=== PATIENT | female | born 2000 | race Caucasian/White ===

== ENCOUNTER → 2019-06-30 10:47 | Outpatient (BNVA) | payer MEDICAID, SELFPAY | PROVIDERS: Visit Provider Nurse Practitioner Women's Health | DX: O99.331 Smoking (tobacco) complicating pregnancy, first trimester (principal); O26.891 Other specified pregnancy related conditions, first trimester; Z67.91 Unspecified blood type, Rh negative | CPT/HCPCS: 80307; 81003; 84315 ==

== ENCOUNTER → 2019-07-18 08:56 | Outpatient (BNVA) | payer MEDICAID, SELFPAY | PROVIDERS: Visit Provider Obstetrics & Gynecology | DX: Z34.82 Encounter for supervision of other normal pregnancy, second trimester (principal) | CPT/HCPCS: 76805 ==

== ENCOUNTER 2019-11-07 21:41 | Outpatient (CLI) | payer MEDICAID, SELFPAY ==
[2019-11-07 21:58] VITALS: BP 103/59; PULSE 94; RESP 16; TEMP 36.8
[2019-11-07 22:35] VITALS: BMI 20.9
[2019-11-07 22:36] VITALS: BP 103/59; PULSE 94; RESP 16; TEMP 36.8
--- NOTE | 2019-11-07 22:49 | PC.NURSE ---
Patient denies contraction however they are graphing on TOCO and are palpated by this nurse. Patient also reports vaginal bleeding however at this time she has no blood on her underwear, nor on the toilet paper when wiping and there was no blood on this nurse's glove after SVE.
== END 2019-11-07 22:40 | disposition home or self-care (01) ==
LOC: OPOB 21:48 → OBGYN 21:49
PROVIDERS: Visit Provider Family Medicine
DX: O36.8190 Decreased fetal movements, unspecified trimester, not applicable or unspecified (principal); Z3A.00 Weeks of gestation of pregnancy not specified
CPT/HCPCS: 59025; 99211

== ENCOUNTER 2021-02-10 19:20 | Emergency (ER) | payer MEDICAID, SELFPAY ==
[2021-02-10 19:32] VITALS: BP 134/60; PULSE 103; RESP 15; TEMP 36.7; O2SAT 99; BMI 19.1
--- NOTE | 2021-02-10 20:05 | XRR_ITS ---
PROCEDURE INFORMATION: Exam: XR Right Ankle Exam date and time: 02/10/2021 8:05 PM Age: 20 years old Clinical indication: Injury or trauma; Fall; Sprain or strain; Ankle; Right TECHNIQUE: Imaging protocol: XR Right ankle. Views: 3 or more views. COMPARISON: No relevant prior studies available. FINDINGS: Bones/joints: Normal. Soft tissues: Normal. XR/XR ankle RT min 3V* [id number] IMPRESSION: No acute findings.
--- NOTE | 2021-02-10 20:41 | W.ED.EXTPRO ---
HPI - Extremity Problem General: Chief complaint: Extremity Injury, Lower Stated complaint: R FOOT INJURY Time Seen by Provider: 02/10/21 19:37 History of Present Illness: HPI Narrative: 80-year-old female who fell last night, injuring her ankle/foot she has had problems bearing weight since that time. She has some bruising and swelling. She localizes her pain mainly laterally over the ankle and base of the lateral foot. MD Complaint: extremity pain and extremity swelling Onset (ago): hour(s) (24) Location: right Quality: stabbing and aching Radiation: none Relieving factors: immobilization Exacerbating factors: weight bearing Associated symptoms: Deny chest pain, fever(s), rash or short of breath Review of Systems Const: Denies: fever(s) Card: Denies: chest pain Skin/Breast: Denies: rash PFSH ED PFSH: Medical History (Updated 02/10/21 @ 21:51 by Jl Desai DO) Bacterial vaginitis Discharge noted on exam. Wet prep consistent with bacterial vaginosis. Prescription for metronidazole. Maternal tobacco use in first trimester Risks of cigarette smoking discussed with patient in regards to her health and her unborn child. Greater risk for growth restriction later in and risk for section discussed. Nicotine withdrawal in the baby after delivery discussed. Risks of secondhand smoke in the period including greater risk for SIDS discussed. Cessation encouraged. Questions answered. Patient denies medical problems Denies history of: htn,dm,heart,lung,liver,kidney,thyroid,dvt/pe,herpes denies hx of partner with herpes PCP: Jaelyn Glez-- [facility] Rh negative status during in first trimester Short interval between pregnancies affecting in first trimester, antepartum - delivered vaginally in October 2018-- briefly discussed risks to ptl/ptd, early loss Surgical History No history of previous surgery Family History Unknown Patient denies medical problems Denies family history of: breast cancer, colon cancer, hypertension, heart disease, diabetes, uterine cancer, ovarian cancer, stroke, thyroid problems Social History Smoking and tobacco status: current every day smoker cigarettes [ Other cigarette details: 10 cigarrettes daily, down from 1 PPD. Started at age 12; denies vaping ] Alcohol intake: never Additional social history: Well balanced diet Physical Exam Const: COMMON NORMALS: no acute distress, patient oriented x3, healthy appearing and alert GENERAL APPEARANCE: cooperative Resp: COMMON NORMALS: normal respiratory effort Cardio: COMMON NORMALS: Peripheral pulses 2+ throughout PERIPHERAL PULSES: Peripheral pulses 2+ throughout Extremity: NARRATIVE EXTREMITY EXAM: Examination of the right lower extremity reveals ecchymosis over the lateral right ankle. There is tenderness at the base of fifth metatarsal. There is some distal fibular tenderness. There is tenderness over the ATFL. No deformity. Pulses and sensation are intact distally Neuro: COMMON NORMALS: patient oriented x3 SENSORIUM/ORIENTATION: Yes alert Course Vital Signs: Vital signs: Vital Signs Temperature 98.1 F 02/10/21 22:02 Pulse Rate 87 02/10/21 22:02 Respiratory Rate 15 02/10/21 22:02 Blood Pressure 112/67 02/10/21 22:02 Pulse Oximetry 99 02/10/21 22:02 MDM - Extremity (Nontraumatic) MDM Narrative: Medical decision making narrative: No fractures by x-ray Discharge Plan Discharge Patient Disposition: Home Clinical Impression: Ankle sprain and strain Condition: Stable Prescriptions: New hydrocodone-acetaminophen 5-325 mg tablet 1 tab PO Q8H PRN (Reason: pain) Qty: 7 RF: 0 Discharge Orders: Discharge ED (Routine); Ordered 02/10/21 Ordered By: Jl Desai Discharge Diet: Usual diet Discharge Activity: Limit activity as instructed Patient Instructions: Ankle Sprain (ED) Activity Restrictions/Additional Instructions: You may bear weight as tolerated in your brace. Use crutches for help as needed. Follow-up with your doctor in 1 week. Return for any problems. Ice and anti-inflammatory pain medication can help. 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
--- NOTE | 2021-02-10 20:46 | XRR_ITS ---
PROCEDURE INFORMATION: Exam: XR Right Foot Exam date and time: 02/10/2021 8:46 PM Age: 20 years old Clinical indication: Injury or trauma; Fall; Sprain or strain; Foot; Right TECHNIQUE: Imaging protocol: XR Right foot. Views: 3 or more views. COMPARISON: CR (LOW EXM, ) 02/10/2021 8:26 PM FINDINGS: Bones/joints: Normal. Soft tissues: Normal. XR/XR foot RT min 3V* [id number] IMPRESSION: No acute findings.
[2021-02-10 22:02] VITALS: BP 112/67; PULSE 87; RESP 15; TEMP 36.7; O2SAT 99
== END 2021-02-10 22:04 | disposition home or self-care (01) ==
PROVIDERS: Emergency Provider Emergency Medicine
DX: S93.401A Sprain of unspecified ligament of right ankle, initial encounter (principal); F17.210 Nicotine dependence, cigarettes, uncomplicated; X58.XXXA Exposure to other specified factors, initial encounter
CPT/HCPCS: 29515; 73610; 73630; 99283; E0114

== ENCOUNTER → 2021-12-02 13:53 | Outpatient (BNVA) | payer MEDICAID, SELFPAY | PROVIDERS: Visit Provider Family Medicine | DX: R50.9 Fever, unspecified (principal); R05.9 Cough, unspecified; R11.2 Nausea with vomiting, unspecified; R06.2 Wheezing; R50.81 Fever presenting with conditions classified elsewhere | CPT/HCPCS: 87635 ==

== ENCOUNTER 2022-11-23 17:43 | Emergency (ER) | payer MEDICAID, SELFPAY ==
[2022-11-23 17:53] VITALS: BP 97/63; PULSE 93; RESP 14; TEMP 37.1; O2SAT 99; BMI 22.6
--- NOTE | 2022-11-23 18:05 | XRR_ITS ---
PROCEDURE INFORMATION: Exam: XR Right Foot Exam date and time: 11/23/2022 6:22 PM Age: 22 years old Clinical indication: Injury or trauma; Fall; Blunt trauma; Foot; Right TECHNIQUE: Imaging protocol: Radiologic exam of the right foot. Views: 3 or more views. COMPARISON: No relevant prior studies available. FINDINGS: Bones/joints: Osseous structures are intact. Negative for fracture. Joint spaces are preserved. Soft tissues: Normal. XR/XR foot RT min 3V* [id number] IMPRESSION: No acute findings.
--- NOTE | 2022-11-23 19:19 | ED_ITS ---
HPI - Extremity Problem General: Chief complaint: Extremity Injury, Lower Stated complaint: Right Foot injury Time Seen by Provider: 11/23/22 19:07 Source: patient Mode of arrival: ambulatory Limitations: no limitations History of Present Illness: 22-year-old female states that she believes she had hit her right great toe and has been having pain over the last hour she does have bruising to the proximal portion of the toe states it hurts to walk on it improved with rest rates her pain a 5 out of 10 denies any fevers denies any redness. PFSH ED PFSH: Medical History Bacterial vaginitis Discharge noted on exam. Wet prep consistent with bacterial vaginosis. Prescription for metronidazole. Maternal tobacco use in first trimester Risks of cigarette smoking discussed with patient in regards to her health and her unborn child. Greater risk for growth restriction later in and risk for section discussed. Nicotine withdrawal in the baby after delivery discussed. Risks of secondhand smoke in the period including greater risk for SIDS discussed. Cessation encouraged. Questions answered. Patient denies medical problems Denies history of: htn,dm,heart,lung,liver,kidney,thyroid,dvt/pe,herpes denies hx of partner with herpes PCP: Jaelyn Glez-- [facility] Rh negative status during in first trimester Short interval between pregnancies affecting in first trimester, antepartum - delivered vaginally in October 2018-- briefly discussed risks to ptl/ptd, early loss Surgical History No history of previous surgery Family History Unknown Patient denies medical problems Denies family history of: breast cancer, colon cancer, hypertension, heart disease, diabetes, uterine cancer, ovarian cancer, stroke, thyroid problems Social History Smoking and tobacco status: current every day smoker cigarettes [ Other cigarette details: 10 cigarrettes daily, down from 1 PPD. Started at age 12; denies vaping] Alcohol intake: never Substance/Drug Use: current Other substance/drug use details: Last used 03/2019 Additional social history: Well balanced diet Physical Exam Const: COMMON NORMALS: no acute distress and patient oriented x3 HENMT: COMMON NORMALS: normocephalic HEAD & SCALP: normocephalic Eye: COMMON NORMALS: conjunctivae normal CONJUNCTIVA: Yes conjunctivae normal Chest: COMMONS NORMALS: normal inspection of the chest Resp: COMMON NORMALS: normal respiratory effort Cardio: COMMON NORMALS: regular rate RATE: regular rate GI: INSPECTION: Yes normal to inspection Extremity: OTHER: Contusion along with tenderness to proximal right great toe no warmth to touch Neuro: COMMON NORMALS: patient oriented x3 Psych: COMMON NORMALS: mental status grossly normal Skin: COMMON NORMALS: no rashes or lesions noted GENERAL SKIN EXAM: no rashes or lesions noted Course Vital Signs: Vital signs: Vital Signs Temperature 98.7 F 11/23/22 17:53 Pulse Rate 93 11/23/22 17:53 Respiratory Rate 14 11/23/22 17:53 Blood Pressure 97/63 11/23/22 17:53 Pulse Oximetry 99 11/23/22 17:53 Oxygen Delivery Me thod Room Air 11/23/22 17:53 MDM - Extremity (Nontraumatic) Medical Decision Making Patient presents here with a contusion to her right great toe is no signs of gout or paronychia x-ray shows no fracture she is to ice we will prescribe her Naprosyn she is to follow-up with PCP and return if worsening she understands agrees to plan. Lab Data Radiology Impressions Foot X-Ray 11/23/22 18:05 IMPRESSION: No acute findings. Discharge Plan Discharge Patient Disposition: Home Clinical Impression: Pain in toe of right foot Condition: Stable Prescriptions: New Naprosyn 500 mg tablet 500 mg PO BID PRN (Reason: pain) Qty: 20 0RF No Action prednisone 20 mg tablet 40 mg PO DAILY 3 Days Qty: 6 0RF albuterol sulfate 90 mcg/actuation HFA aerosol inhaler 2 puff inhalation Q6H PRN (Reason: shortness of breath or wheezing) Qty: 8.5 0RF Discharge Orders: Discharge ED (Routine); Ordered 11/23/22 Ordered By: Angelina Bhagat Discharge Diet: Advance as tolerated Discharge Activity: Resume usual activity Patient Instructions: Contusion in Adults (ED) Stand Alone Forms: Work/School Release Coding 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
[2022-11-23] MEDS: naproxen 500 mg Tablet PO (19:33)
--- NOTE | 2022-11-27 13:08 | DCPLANNER ---
fast food restaurant manager called patient due to no primary care physician - no answer at this time, not a working number.
== END 2022-11-23 19:36 | disposition home or self-care (01) ==
PROVIDERS: Emergency Provider Emergency Medicine
DX: S90.111A Contusion of right great toe without damage to nail, initial encounter (principal); W22.8XXA Striking against or struck by other objects, initial encounter
CPT/HCPCS: 73630; 99283

== ENCOUNTER → 2024-02-08 13:18 | Outpatient (BNVA) | payer MEDICAID, SELFPAY | PROVIDERS: Visit Provider Nurse Practitioner | DX: J02.9 Acute pharyngitis, unspecified (principal) | CPT/HCPCS: 87880 ==

== ENCOUNTER → 2024-02-10 16:29 | Outpatient (BNVA) | payer MEDICAID, SELFPAY | PROVIDERS: Visit Provider Registered Nurse Neonatal Intensive Care | DX: J06.9 Acute upper respiratory infection, unspecified (principal) | CPT/HCPCS: 87426 ==

== ENCOUNTER 2024-10-25 21:49 | Emergency (ER) | payer BC, MEDICAID, SELFPAY ==
[2024-10-25 21:51] VITALS: BP 114/73; PULSE 78; RESP 16; TEMP 37; O2SAT 98
[2024-10-25 22:36] LABS: Basophils % 0.4 %; Eosinophils # 0.1 10^3/uL (0.0-0.8); Eosinophils % 0.7 %; Hematocrit 36.4 % (36-47); Lymphocytes # 3.4 10^3/uL (0.8-4.8); Lymphocytes % 34.1 %; Mean Corpuscular HGB Conc 34.3 g/dL (30-55); Mean Corpuscular Hemoglobin 31.2 pg (27-33); Mean Corpuscular Volume 90.8 fl (85-98); Mean Platelet Volume 12.1 fL (7.4-10.4); Monocytes # 0.7 10^3/uL (0.2-0.9); Monocytes % 7.1 %; Neutrophils # 5.68 10^3/uL (1.8-7.7); Neutrophils % 57.5 %; Nucleated Red Blood Cells % 0 %; Platelet Count 202 10^3/cmm (157-399); Red Blood Count 4.01 10^6/uL (3.85-5.65); Red Cell Distribution Width 13.3 % (12.1-15.1); White Blood Count 9.88 10^3/uL (3.29-11.43)
--- NOTE | 2024-10-25 22:45 | CTR_ITS ---
PROCEDURE INFORMATION: Exam: CT Abdomen And Pelvis With Contrast Exam date and time: 10/25/2024 11:05 PM Age: 24 years old Clinical indication: Abdominal pain; Localized; Right lower quadrant (rlq); Prior surgery; Surgery date: 6+ months; Surgery type: Tubal ligation; Nausea, rlq pain; Additional info: Periumbilical/rlq pain concerning for appy TECHNIQUE: Imaging protocol: Computed tomography of the abdomen and pelvis with contrast. Radiation optimization: All CT scans at this facility use at least one of these dose optimization techniques: automated exposure control; mA and/or kV adjustment per patient size (includes targeted exams where dose is matched to clinical indication); or iterative reconstruction. Contrast material: OMNI 350; Contrast volume: 75 ml; Contrast route: INTRAVENOUS (IV); COMPARISON: US OB >= 14 weeks fetus [id number] 07/18/2019 8:56 AM RADIATION DOSE METRICS: Total DLP (mGy-cm): 309.3 FINDINGS: Lungs: Clear basilar lung parenchyma. Pleural spaces: No pleural fluid. Heart: Normal heart size. Liver: Normal configuration. Homogeneous parenchyma. Gallbladder and biliary ducts: No regional inflammation. No calcified stones. No ductal dilation. Pancreas: Normal. No ductal dilation. Spleen: Normal. No splenomegaly. Adrenal glands: Normal configuration. Kidneys and ureters: Kidneys enhance symmetrically and demonstrate no evidence of mass, calculus, obstruction, or inflammation. Stomach and bowel: Unremarkable. No obstruction. No mural thickening. Appendix: Normal appendix is confirmed. Intraperitoneal space: Trace pelvic free fluid is slightly hyperdense. Vasculature: Normal caliber arterial structures. Lymph nodes: No enlarged lymph nodes. Urinary bladder: Unremarkable as visualized. Reproductive: Physiologic appearance for age. Bones/joints: Very mild rotatory levoscoliosis. Skeletal structures are otherwise normal. Soft tissues: Unremarkable. CT/CT abdomen pelvis w con* [id number] IMPRESSION: Recently ruptured right ovarian follicle noted with low volume blood-density free fluid. Otherwise no acute abnormality to explain patient's pain. A normal appendix is confirmed and there is no evidence of urolithiasis.
[2024-10-25 22:47] LABS: HCG Qualitative Urine. Negative (Negative)
[2024-10-25 22:50] LABS: Bilirubin Urine Negative (Negative); Blood Urine Negative (Negative); Glucose Urine UA Negative (Normal); Ketones Urine Negative (Negative); Leukocyte Esterase Urine 2+ (Negative); Nitrate Urine Negative (Negative); Protein Urine Negative (Negative); Specific Gravity, Urine 1.008 (1.005-1.030); Urine Appearance Clear (CLEAR); Urine Color Yellow (Yellow); pH Urine 7.5 (5-7)
[2024-10-25 22:52] LABS: Alanine Aminotransferase 6 U/L (0-33); Alkaline Phosphatase 84 U/L (35-105); Anion Gap 15.5 (5-19); Aspartate Amino Transferase 14 U/L (0-32); Blood Urea Nitrogen 6 mg/dL (6-20); Calcium 9.1 mg/dL (8.5-10.5); Carbon Dioxide 21 mmol/L (22-29); Chloride 105 mmol/L (98-107); Creatinine Clr Calc Pharmacy 139.8116; Glomerular Filtration Rate 149.1 mL/min (90-130); Glucose 106 mg/dL (65-115); Osmolality Calculated 284 mOsm/kg (285-295); Potassium 3.5 mmol/L (3.5-5.1); Sodium 138 mmol/L (136-145); Total Bilirubin 0.4 mg/dL (0.15-1.2)
[2024-10-25 22:55] LABS: Add Urine Microscopic? YES; Bacteria Urine None Seen /hpf; Hyaline Casts Urine 0-4 /lpf; RBC Urine 0-2 /hpf (0-2); Squamous Epithelial Cell Urine 0-5 /hpf (0-5)
[2024-10-25 22:58] VITALS: BP 115/58; PULSE 69; RESP 16; O2SAT 98
[2024-10-25] MEDS: iohexol 350 mg/mL 500 mL Btl (per mL) IV (23:07)
[2024-10-25 23:18] VITALS: RESP 16
[2024-10-25] MEDS: ondansetron 2 mg/ML SDV 2 mL 4 MG IVP (23:18)
[2024-10-25] MEDS: morphine 4 mg/mL SDV 1 mL IVP (23:18)
[2024-10-25] MEDS: sodium chloride 0.9% 1,000 ML 999 ML IV (23:19)
[2024-10-26 00:28] VITALS: BP 110/61; PULSE 72; O2SAT 98
--- NOTE | 2024-10-26 05:02 | W.ED.ABDPA2 ---
HPI - Abdominal Pain General: Chief Complaint: Abdominal Pain Stated Complaint: ABD Pain Time Seen by Provider: 10/25/24 22:23 History of Present Illness: Patient is a generally well-appearing 24-year-old female seen for lower abdominal pain. She states that has been ongoing for the last 2 days and it is located in the suprapubic region almost in the midline but slightly to the right. Pain is worse with motion and better with rest. She has decreased appetite. She denies fever, dysuria, frequency, diarrhea, constipation, and has no other acute complaints. She has tried hevy-czz-tooepai medication with minimal relief. She currently rates the pain at 8 of 10. She is concerned she might have appendicitis. She has had her tubes tied. Related Data Previous Rx's ?Medication ?Instructions ?Recorded oxycodone-acetaminophen 5 mg-325 1 tab PO TID PRN pain #14 tabs 10/26/24 mg tablet (Percocet) Allergies Allergy/AdvReac Type Severity Reaction Status Date / Time No Known Drug Allergies Allergy Unknown Verified 08/22/24 12:44 [facility] ED PFS: Medical History (Updated 10/26/24 @ 00:04 by Manuel Cobb MD) Patient denies medical problems Denies history of: htn,dm,heart,lung,liver,kidney,thyroid,dvt/pe,herpes denies hx of partner with herpes PCP: Jaelyn Glez-- [place] Short interval between pregnancies affecting in first trimester, antepartum - delivered vaginally in October 2018-- briefly discussed risks to ptl/ptd, early loss Maternal tobacco use in first trimester Risks of cigarette smoking discussed with patient in regards to her health and her unborn child. Greater risk for growth restriction later in and risk for section discussed. Nicotine withdrawal in the baby after delivery discussed. Risks of secondhand smoke in the period including greater risk for SIDS discussed. Cessation encouraged. Questions answered. Bacterial vaginitis Discharge noted on exam. Wet prep consistent with bacterial vaginosis. Prescription for metronidazole. Rh negative status during in first trimester Surgical History No history of previous surgery Family History Unknown Patient denies medical problems Denies family history of: breast cancer, colon cancer, hypertension, heart disease, diabetes, uterine cancer, ovarian cancer, stroke, thyroid problems Social History Smoking and tobacco/nicotine status: never used tobacco/nicotine Alcohol intake: never Substance/Drug Use: current Other substance/drug use details: Last used 03/2019 Additional social history: Well balanced diet Physical Exam Const: COMMON NORMALS: no acute distress, patient oriented x3 and alert HENMT: COMMON NORMALS: normocephalic and atraumatic HEAD & SCALP: normocephalic and atraumatic Eye: COMMON NORMALS: Equal, round and reactive pupils present, EOMs intact bilaterally and no scleral icterus PUPIL: Yes Equal, round and reactive pupils present Resp: COMMON NORMALS: normal respiratory effort and No retractions Cardio: COMMON NORMALS: regular rate, regular rhythm and No murmurs present (Cardio) RATE: regular rate RHYTHM: regular rhythm GI: OTHER: moderate right adnexal tenderness. Some pain over McBurney's point as well. Abdomen is soft and nonperitoneal. Neuro: COMMON NORMALS: patient oriented x3 SENSORIUM/ORIENTATION: Yes alert Skin: COMMON NORMALS: no rashes or lesions noted GENERAL SKIN EXAM: no rashes or lesions noted Course Vital Signs: Vital signs: Vital Signs Temperature 98.6 F 10/25/24 21:51 Pulse Rate 72 10/26/24 00:28 Respiratory Rate 16 10/25/24 23:18 Blood Pressure 110/61 10/26/24 00:28 Pulse Oximetry 98 10/26/24 00:28 Oxygen Delivery Me thod Room Air 10/25/24 22:58 MDM - Abdominal Pain Medical Decision Making Patient remained hemodynamically stable through ED course. Single dose of morphine helped her pain considerably. Vital signs are stable. Blood work is noncontributory. CT scan shows a recently ruptured ovarian hemorrhagic cyst with a small amount of blood in the pelvis. I suspect this to be the cause of her pain. I do not suspect ongoing bleeding and she will be discharged home in stable and improved condition with a short course of pain medication follow-up primary care as needed. She knows that she is always welcome back to the emergency department if needed. I do not suspect appendicitis or any other emergent process warranting further workup at this time. Lab Data 10/25/24 22:32 10/25/24 22:32 Labs/Radiology: Radiology Impressions Abdomen/Pelvis CT 10/25/24 22:45 IMPRESSION: Recently ruptured right ovarian follicle noted with low volume blood-density free fluid. Otherwise no acute abnormality to explain patient's pain. A normal appendix is confirmed and there is no evidence of urolithiasis. Laboratory Results WBC 9.88 10^3/uL (3.29-11.43) 10/25/24 22: RBC 4.01 10^6/uL (3.85-5.65) 10/25/24 22: Hgb 12.50 g/dL (11.27-16.99) 10/25/24 22: Hct 36.4 % (36-47) 10/25/24 22: MCV 90.8 fl (85-98) 10/25/24 22: MCH 31.2 pg (27-33) 10/25/24: MCHC 34.3 g/dL (30-55) 10/25/24: RDW 13.3 % (12.1-15.1) 10/25/24 22: Plt Count 202 10^3/cmm (157-399) 10/25/24 22: MPV 12.1 fL (7.4-10.4) H 10/25/24 22: Neut % (Auto) 57.5 % 10/25/24 22: Lymph % (Auto) 34.1 % 10/25/24 22: [place] % (Auto) 7.1 % 10/25/24: Eos % (Auto) 0.7 % 10/25/24: Baso % (Auto) 0.4 % 10/25/24: Neut # (Auto) 5.68 10^3/uL (1.8-7.7) 10/25/24: Lymph # (Auto) 3.4 10^3/uL (0.8-4.8) 10/25/24: [place] # (Auto) 0.7 10^3/uL (0.2-0.9) 10/25/24 22: Eos # (Auto) 0.1 10^3/uL (0.0-0.8) 10/25/24:32 Baso # (Auto) 0.0 10^3/uL (0.0-0.1) 10/25/24 22:32 Nucleated RBC % (auto) 0 % 10/25/24 22: Nucleated RBCs # 0.0 /100WBC 10/25/24 22:32 Sodium 138 mmol/L (136-145) 10/25/24 22:32 Potassium 3.5 mmol/L (3.5-5.1) 10/25/24 22:32 Chloride 105 mmol/L (98-107) 10/25/24 22:32 Carbon Dioxide 21 mmol/L (22-29) L 10/25/24 22:32 Anion Gap 15.5 (5-19) 10/25/24 22:32 BUN 6 mg/dL (6-20) 10/25/24 22:32 Creatinine 0.5 mg/dL (0.5-0.9) 10/25/24 22:32 GFR Calculation 149.1 mL/min (90-130) H 10/25/24 22:32 Glucose 106 mg/dL (65-115) 10/25/24 22:32 Calculated Osmolality 284 mOsm/kg (285-295) L 10/25/24 22:32 Calcium 9.1 mg/dL (8.5-10.5) 10/25/24 22:32 Total Bilirubin 0.4 mg/dL (0.15-1.2) 10/25/24 22:32 AST 14 U/L (0-32) 10/25/24 22:32 ALT 6 U/L (0-33) 10/25/24 22:32 Alkaline Phosphatase 84 U/L (35-105) 10/25/24 22:32 Total Protein 7.0 g/dL (6.6-8.7) 10/25/24 22: Albumin 4.0 g/dL (3.5-5.2) 10/25/24 22: Globulin 3.0 g/dL (1.3-4.6) 10/25/24 22:32 HCG, Qual Negative (Negative) 10/25/24 22:04 Urine Color Yellow (Yellow) 10/25/24 22:04 Urine Appearance Clear (CLEAR) 10/25/24 22:04 Urine pH 7.5 (5-7) 10/25/24 22:04 Ur Specific [place] 1.008 (1.005-1.030) 10/25/24 22:04 Urine Protein Negative (Negative) 10/25/24 22:04 Urine Glucose (UA) Negative (Normal) 10/25/24 22:04 Urine Ketones Negative (Negative) 10/25/24 22:04 Urine Blood Negative (Negative) 10/25/24 22:04 Urine Nitrate Negative (Negative) 10/25/24 22:04 Urine Bilirubin Negative (Negative) 10/25/24 22:04 Urine Urobilinogen 1.0 mg/dL (Negative) 10/25/24 22:04 Ur Leukocyte Esterase 2+ (Negative) A 10/25/24 22:04 Urine RBC 0-2 /hpf (0-2) 10/25/24 22:04 Urine WBC 11-20 /hpf (0-5) H 10/25/24 22:04 Ur Squamous Epith Cells 0-5 /hpf (0-5) 10/25/24 22:04 Amorphous Sediment Not Reportable 10/25/24 22:04 Urine Bacteria None seen /hpf (NONE) 10/25/24 22:04 Hyaline Casts 0-4 /lpf H 10/25/24 22:04 All radiology interpretation(s) finalized by discharge Discharge Plan Discharge Patient Disposition: Home Clinical Impression: Hemorrhagic cyst of ovary Condition: Stable Prescriptions: New oxycodone-acetaminophen [Percocet] 5-325 mg tablet 1 tab PO TID PRN (Reason: pain) Qty: 14 0RF Discharge Orders: Discharge ED (Routine); Ordered 10/26/24 Ordered By: Manuel Cobb Discharge Diet: Advance as tolerated Discharge Activity: Increase activity as tolerated Patient Instructions: Ruptured Ovarian Cyst (ED) Stand Alone Forms: Work/School Release Print Language: Bahraini Coding Level of Care Code 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
== END 2024-10-26 00:30 | disposition home or self-care (01) ==
PROVIDERS: Emergency Provider Student in an Organized Health Care Education/Training Program
DX: N83.291 Other ovarian cyst, right side (principal)
CPT/HCPCS: 36415; 74177; 80053; 81001; 81025; 85025; 96361; 96374; 96375; 99285; J2270; J2405; J7030

== ENCOUNTER 2025-02-22 18:36 | Emergency (ER) | payer BC, MEDICAID, SELFPAY ==
--- OUTSIDE RECORDS SUMMARY | 2025-02-22 18:40 | XMS_ITS | Patient Health Record ---
Author Organization [facility] Address [address] [place] [address] Care Team Providers Care [facility] Hand Name Role Phone Cyndy Olivarez Primary Care Provider CYNDY OLIVAREZ Unavailable Unavailable Allergies No Known Allergies Reason For Referral No Information Medications Medication SIG (Take, Route, Frequency, Duration) Notes Start Date End Date Status Oseltamivir Phosphate 75 MG Capsule 1 capsule Orally Twice a day; Duration: 5 days 08/11/2023 Active Immunizations Vaccine Route Administration Date Status Comme nts DTaP-Hib Unknown 10/14/2010 Administered Varicella (Varicella-Zoster/ Chicken Pox) Unknown 06/15/1999 Administered Social History Tobacco Use: Social History Observation Description Date Details (start date - stop date) Current Smoker NA - NA Social History Depression Screening Social Info Question Answer Notes PHQ-9 Little interest or pleasure in doing thin gs Not at all Feeling down, depressed, or hopeless Not at all Trouble falling or staying asleep, or sleeping t oo much Not at all Feeling tired or having little energy Not at all Poor appetite or overeating Not at all Feeling bad about yourself, or that you are a failure, or have let yourself or your family down Not at all Trouble concentrating on thi ngs, such as reading the newspaper or watching television Not at all Moving or speaking so slowly that other people could have noticed. Or the opposite ? being so fidgety or restless that you have been moving around a lot more than usual Not at all Thoughts that you would be b светлана off , or of hurting yourself in some way Not at all Total Score 0 Drugs/Alcohol: Social Info Question Answer Notes Alcohol Screen (Audit-C) Did you have a drink containing alcohol in the past year? Yes How often did you have a drink containing alcohol in the past year? 4 or more times a week (4 points) How many drinks did you have on a typical day when you were drinking in the past year? 5 or 6 drinks (2 points) How often did you have 6 or more drinks on one occasion in the past year? Daily or almost daily (4 points) Points 10 Interpretation Positive Tobacco Use: Social Info Question Answer Notes xTobacco Use/Smoking Are you a current smoker How often do you smoke cigarettes? every day How many cigarettes a day do you smoke? - Additional Details Category Social Info Options Details zzMigrated Social History Migrated Social History Smoking Status:Smokes tobacco daily (finding) Section Notes: 04/24/21 04/24/21 04/24/21 04/24/21 04/24/21 04/24/21 04/24/21 02/19/22 PHQ9 04/24/21 02/19/22 PHQ9 04/24/21 02/19/22 PHQ9 04/24/21 02/19/22 PHQ9 04/13/23 PHQ9 Plan Of Treatment No Information Insurance Providers Payer Name Payer Address Payer Phone Subscriber Number Group Number Insured Name Patient Relationship to Insured Coverage Start Date Coverage End Date [place] [address] [place] [address] [phone] [id number] Brooklynn Yanes Self - patient is the insured Medications Administered Medication Instructions Date of Administration Dosage Notes dexAMETHasone 04/24/2021 8 mg IM - Patient Supplied Med 02/24/2022 depo-provera 150mg given IM in left hip, patient tolerated well, she is to return for next shot . 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
--- NOTE | 2025-02-22 18:48 | XRR_ITS ---
PROCEDURE INFORMATION: Exam: XR Chest Exam date and time: 02/22/2025 7:04 PM Age: 24 years old Clinical indication: Pain; Cough and dyspnea; On breathing; Additional info: Chest pain TECHNIQUE: Imaging protocol: Radiologic exam of the chest. 2 image(s) are submitted. Views: 1 view. COMPARISON: CT abdomen pelvis w con* [id number] 10/25/2024 11:05 PM FINDINGS: Lungs: subtle atelectasis along bilateral diaphragm in lower lobes is possible. No definitive pulmonary consolidation, effusion or pneumothorax. Normal heart size. Pleural spaces: See Lungs finding. Heart/Mediastinum: See Lungs finding. Bones/joints: Unremarkable. XR/XR chest 1V portable [id number] IMPRESSION: Subtle atelectasis along bilateral diaphragm in lower lobes is possible. No definitive pulmonary consolidation, effusion or pneumothorax. Normal heart size.
[2025-02-22 18:53] VITALS: BP 115/73; PULSE 88; RESP 16; TEMP 36.8; O2SAT 100
[2025-02-22 19:07] VITALS: BP 107/70; PULSE 85; O2SAT 99
--- NOTE | 2025-02-22 19:32 | ED_ITS ---
HPI - URI/Sore Throat General: Chief Complaint: Upper Respiratory Infection Stated Complaint: congestion chest hurts throat pain Time Seen by Provider: 02/22/25 18:54 Source: patient Mode of arrival: ambulatory Limitations: no limitations History of Present Illness: Patient is a 24-year-old female who reports to the emergency department complaining of upper respiratory symptoms for the past 2 days. 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 Reports a dry cough, no chest pain. No nausea/vomiting/diarrhea. Vital stable this time. Took some DayQuil for her symptoms. Otherwise nontoxic-appearing, no pertinent past medical history. MD elicited complaint: cough, sore throat, nasal congestion and sinus pain Onset (ago): day(s) (2) Consistency: constant Severity: moderate Able to tolerate fluids by mouth: Yes Exacerbating factors: nothing Relieving factors: nothing Context: other (works at [employer]) Associated symptoms: Reports ear or mastoid pain, nasal congestion and sinus pain; Deny abdominal pain, chills, chest pain, diarrhea, fever(s), headache(s), nausea or vomiting Related Data Previous Rx's ?Medication ?Instructions ?Recorded oxycodone-acetaminophen 5 mg-325 1 tab PO TID PRN pain #14 tabs //25 mg tablet (Percocet) fluticasone propionate 50 2 spray intranasal DAILY PRN nasal 02/22/25 mcg/actuation nasal congestion #16 grams spray,suspension Allergies Allergy/AdvReac Type Severity Reaction Status Date / Time No Known Drug Allergies Allergy Unknown Verified 02/22/25 18:56 Review of Systems General: Reports: 10 or more systems reviewed and unremarkable except in HPI and below Const: Denies: fever(s), chills or fatigue Eyes: Denies: change in vision ENMT: Reports: throat pain, ear or mastoid pain, nasal discharge, nasal congestion and sinus pain Card: Denies: chest pain, palpitations, swelling of feet/ankles or lightheadedness Resp: Reports: non-productive cough; Denies: dyspnea, productive cough or wheezing GI: Denies: abdominal pain, nausea, vomiting, diarrhea or constipation : Denies: flank pain, difficulty voiding, dysuria or urinary frequency Musc: Denies: neck pain, back pain or joint pain Skin/Breast: Denies: rash Neuro: Denies: headache(s), numbness in extremities or weakness in extremities PFSH ED PFSH: Medical History Patient denies medical problems Denies history of: htn,dm,heart,lung,liver,kidney,thyroid,dvt/pe,herpes denies hx of partner with herpes PCP: Jaelyn Glez-- [facility] Short interval between pregnancies affecting in first trimester, antepartum - delivered vaginally in October 2018-- briefly discussed risks to ptl/ptd, early loss Maternal tobacco use in first trimester Risks of cigarette smoking discussed with patient in regards to her health and her unborn child. Greater risk for growth restriction later in and risk for section discussed. Nicotine withdrawal in the baby after delivery discussed. Risks of secondhand smoke in the period including greater risk for SIDS discussed. Cessation encouraged. Questions answered. Bacterial vaginitis Discharge noted on exam. Wet prep consistent with bacterial vaginosis. Prescription for metronidazole. Rh negative status during in first trimester Surgical History No history of previous surgery Family History Unknown Patient denies medical problems Denies family history of: breast cancer, colon cancer, hypertension, heart disease, diabetes, uterine cancer, ovarian cancer, stroke, thyroid problems Social History Smoking and tobacco/nicotine status: never used tobacco/nicotine Alcohol intake: never Substance/Drug Use: current Other substance/drug use details: Last used 03/2019 Additional social history: Well balanced diet Physical Exam Const: COMMON NORMALS: no acute distress, patient oriented x3 and no limitations GENERAL APPEARANCE: cooperative, comfortable and well developed ORIENTATION/CONSCIOUSNESS: Yes awake, Yes oriented to person, Yes oriented to place and Yes oriented to time HENMT: COMMON NORMALS: normocephalic, atraumatic and hearing grossly normal bilaterally HEAD & SCALP: normocephalic and atraumatic Eye: COMMON NORMALS: Equal, round and reactive pupils present, EOMs intact bilaterally and conjunctivae normal CONJUNCTIVA: Yes conjunctivae normal PUPIL: Yes Equal, round and reactive pupils present Neck/C-Spine: COMMON NORMALS: full ROM, supple and no JVD Resp: COMMON NORMALS: normal respiratory effort, No retractions, No use of accessory muscles and clear to auscultation bilaterally AUSCULTATION: clear to auscultation bilaterally Cardio: COMMON NORMALS: no JVD, regular rate, regular rhythm, No clicks present (Cardio), No murmurs present (Cardio) and No rub (Cardio) RATE: regular rate RHYTHM: regular rhythm Extremity: COMMON NORMALS: normal to inspection, full ROM and capillary refill normal Neuro: COMMON NORMALS: patient oriented x3, moves all extremities, no focal motor deficits and no sensory deficits noted SENSORIUM/ORIENTATION: Yes oriented to person, Yes oriented to place and Yes oriented to time Skin: COMMON NORMALS: no rashes or lesions noted GENERAL SKIN EXAM: no rashes or lesions noted Course Vital Signs: Vital signs: Vital Signs Temperature 98.3 F 02/22/25 18:53 Pulse Rate 88 02/22/25 20:14 Respiratory Rate 16 02/22/25 18:53 Blood Pressure 115/55 02/22/25 20:14 Pulse Oximetry 98 02/22/25 20:14 Oxygen Delivery Me thod Room Air 02/22/25 19:07 MDM - URI/Sore Throat Medical Decision Making Patient presenting with upper respiratory symptoms for the past 2 days, 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 Viral swab negative, chest x- ray does not show any focal consolidation. The physical exam was unremarkable for any adventitious lung sounds, overall nontoxic-appearing and I suspect viral etiology. Will be given work note for off work due to contagion precaution, give Flonase for her upper respiratory congestion and given general return precautions and instructed follow-up with primary care as needed. Patient agrees with this plan. Lab Data Radiology Impressions Chest X-Ray 02/22/25 18:48 IMPRESSION: Subtle atelectasis along bilateral diaphragm in lower lobes is possible. No definitive pulmonary consolidation, effusion or pneumothorax. Normal heart size. Laboratory Results Influenza A (PCR) Negative (Negative) 02/22/25 19:00 Influenza Type B (PCR) Negative (Negative) 02/22/25 19:00 RSV (PCR) Negative (Negative) 02/22/25 19:00 SARS-CoV-2 (PCR) Negative (Negative) 02/22/25 19:00 All radiology interpretation(s) finalized by discharge Discharge Plan Discharge Patient Disposition: Home Clinical Impression: Viral infection Condition: Stable Prescriptions: New fluticasone propionate 50 mcg/actuation spray,suspension 2 spray intranasal DAILY PRN (Reason: nasal congestion) Qty: 16 0RF Rx Instructions: administer into each nostril No Action oxycodone-acetaminophen [Percocet] 5-325 mg tablet 1 tab PO TID PRN (Reason: pain) Qty: 14 0RF Discharge Orders: Discharge ED (Routine); Ordered 02/22/25 Ordered By: Ryley Read Patient Instructions: Patient Portal & Fidelina Instructions Activity Restrictions/Additional Instructions: Viral Illness Discharge Plan Diagnosis: Acute viral upper respiratory illness (non-influenza, [id number]), with negative chest X-ray and viral swab. Discharge Instructions: - General Course and Prognosis - Most viral upper respiratory infections in healthy adults are self-limited and resolve within 7?10 days. Symptoms may include cough, nasal congestion, rhinorrhea, sore throat, headache, and low-grade fever.[1] https://pubmed.ncbi.nlm.nih.gov/68084423 [2] https://pubmed.ncbi.nlm.nih.gov/18867801 - No evidence of pneumonia or bacterial superinfection was found on chest imaging or clinical assessment. - Medications and Symptomatic Management - Fluticasone nasal spray (Flonase): Use as directed for nasal congestion. Typical adult dosing is 1?2 sprays per nostril once daily. Intranasal corticosteroids are effective for reducing nasal symptoms in viral upper respiratory infections. - Analgesics/Antipyretics: Acetaminophen is recommended for fever, headache, or myalgias. NSAIDs (e.g., ibuprofen, naproxen) are also effective for symptom control in non-COVID viral respiratory infections and are considered safe in this context. Use the lowest effective dose for the shortest duration necessary. [3] https://pubmed.ncbi.nlm.nih.gov/31338733 - Hydration: Maintain adequate oral fluid intake. - Rest: Encourage rest as needed. - Other Symptomatic Measures: - Saline nasal irrigation or sprays may provide additional relief for nasal congestion. - Throat lozenges or warm fluids can help with sore throat. - Cgnm-[id number] cough suppressants or expectorants may be used if cough is bothersome, though evidence for efficacy is limited. - Infection Control - Practice good hand hygiene and respiratory etiquette (cover coughs/sneezes, dispose of tissues properly). - Avoid close contact with vulnerable individuals (elderly, immunocompromised, infants) while symptomatic. - Warning Signs: - Seek prompt medical attention if any of the following develop: - Shortness of breath or difficulty breathing - Chest pain - Persistent high fever (>102?F or 39?C) not responsive to antipyretics - Confusion or altered mental status - Inability to tolerate oral fluids or signs of dehydration - Worsening or new symptoms after initial improvement - Follow-Up: - Routine follow-up is not required unless symptoms persist beyond 2 weeks, worsen, or new concerning symptoms develop. Rationale and Evidence: - The [place] [employer] recommends supportive care as the standard of care for most non-influenza viral respiratory infections in immunocompetent adults.[4] https://www.ncbi.nlm.nih.gov/pmc/articles/GSZ4671763/ - Recent studies confirm that, in the post-pandemic era, parainfluenza and rhinovirus are common causes of symptomatic upper respiratory tract infection in adults with negative COVID-19 and influenza testing.[1] https://pubmed.ncbi.nlm.nih.gov/24633611 - NSAIDs and acetaminophen are both effective and safe for symptom control in non-COVID viral respiratory infections.[3] https://pubmed.ncbi.nlm.nih.gov/74036215 - There is no indication for antibiotics or antiviral therapy in the absence of influenza, COVID-19, or evidence of bacterial infection.[4] https://www.ncbi.nlm.nih.gov/pmc/articles/RGG2098203/ [1] https://pubmed.ncbi.nlm.nih.gov/65692260 [2] https://pubmed.ncbi.nlm.nih.gov/91994024 References * Characterization of Viral Pathogens Associated With Symptomatic Upper Respiratory Tract Infection in Adults During a Low COVID-19 Transmission Period https://pubmed.ncbi.nlm.nih.gov/26781642 . Phillip N, Bipin V, Stroyosef V, et al. PeerJ. 2022;11:z77348. doi:10.7717/peerj.05844. * Baseline Characteristics and Clinical Symptoms Related to Respiratory Viruses Identified Among Patients Presenting With Influenza-Like Illness in Primary Care https://pubmed.ncbi.nlm.nih.gov/19579595 . Carrie Olivares, Shaw S, Augustina M, et al. Clinical Microbiology and Infection : The Official Publication of the Society of Clinical Microbiology and Infectious Diseases. 2019;25(9):2519-3735. doi:10.1016/j.cmi.2019.01.014. * Non-Steroidal Anti-Inflammatory Drugs in Management of COVID-19; A Systematic Review on Current Evidence https://pubmed.ncbi.nlm.nih.gov/46975046 . Robbie M, Kristian A, Zuly A, et al. International Journal of Clinical Practice. 2020;74(9):t59321. doi:10.1111/ijcp.30078. * Nucleic Acid-Based Testing for Noninfluenza Viral Pathogens in Adults With Suspected Community-Acquired Pneumonia. An Official [place] [employer] Clinical Practice Guideline h ttps://www.ncbi.nlm.nih.gov/pmc/articles/ZGG3714689/ . Edy SE, Arlet AL, Alex MM, et al. [place] Journal of Respiratory and Critical Care Medicine. 2020;203(9):9191-1202. doi:10.1164/rccm.339700-2719DK. Stand Alone Forms: Work/School Release Print Language: Uzbek Coding Level of Care Code ED Manager Dental for Tawanda Rossi
[2025-02-22 19:50] LABS: Respiratory Syncytial Virus Ce NEGATIVE (Negative); SARS-CoV-2 PCR NEGATIVE (Negative)
[2025-02-22 20:14] VITALS: BP 115/55; PULSE 88; O2SAT 98
== END 2025-02-22 20:15 | disposition home or self-care (01) ==
PROVIDERS: Emergency Medicine; Emergency Provider Physician Assistant
DX: B34.9 Viral infection, unspecified (principal)
CPT/HCPCS: 71045; 87637; 99284